=== PATIENT | male | born 1965 | race Caucasian/White ===

== ENCOUNTER 2018-08-21 05:00 | Emergency (ER) | payer BC ==
[~2018-08-21] VITALS: Ht 188 cm; Wt 94.5 kg
--- NOTE | 2018-08-21 05:14 | ED.ADGEN ---
Adult General Chief Complaint Chief Complaint "..I got up to get ready for work...and got this severe neck pain.. did have some stiffness yesterday.. in my neck.. it mainly Lt sided.. but my pain got so severe this morning ... when I was getting ready for work.. I passed out..." (ABHILASH FIERRO MD) [facility] HPI Patient is a 52 year old male who presents with above hx Lt. posterior neck pain and syncope. Pt. localizes pain to Lt side of neck from base of skull to Lt Trapezius. Pt. rates pain 6/10, sharp shooting. Ibuprofen and heating pad las t night with relief of pain. No history of fevers or chills. No history of trauma. No history of previous neck injury. No history immunosuppression. No history of problems with defecation or urination. No history of cancers. No history of IV drug use. Patient does have a history of hypertension and low testosterone. Pt. quit smoking 5 yrs ago. (ABHIALSH FIERRO MD) Review of Systems Review of Systems Constitutional: Denies fever or chills [] Eyes: Denies change in visual acuity, redness, or eye pain [] HENT: Denies nasal congestion or sore throat []complaints of neck pain Respiratory: Denies cough or shortness of breath [] Cardiovascular: No additional information not addressed in HPI [] GI: Denies abdominal pain, nausea, vomiting, bloody stools or diarrhea [] : Denies dysuria or hematuria [] Musculoskeletal: Denies back pain or joint pain [] Integument: Denies rash or skin lesions [] Neurologic: Denies headache, focal weakness or sensory changes []complains of syncope Endocrine: Denies polyuria or polydipsia [] All other systems were reviewed and found to be within normal limits, except as documented in this note. (ABHILASH FIERRO MD) Family History Family History Noncontributory (ABHILASH FIERRO MD) Current Medications Current Medications Current Medications Medications (Trade) Dose Ordered Sig/Penny Start Time Stop Time Status Last Admin Dose Admin Lactated Ringer's 1,000 ml @ 1,000 mls/hr Q1H 08/21/18 05:20 08/21/18 06:19 DC 08/21/18 06:01 1,000 MLS/HR Methylprednisolone Acetate (DEPO-Medrol IM) 40 mg 1X ONCE 08/21/18 06:00 08/21/18 06:05 DC 08/21/18 06:01 40 MG Morphine Sulfate (Morphine 10mg Syringe) 10 mg 1X ONCE 08/21/18 05:30 08/21/18 06:05 DC 08/21/18 06:02 10 MG Orphenadrine Citrate (Norflex) 60 mg 1X ONCE 08/21/18 05:30 08/21/18 06:05 DC 08/21/18 05:30 60 MG ([facility]) Allergies Allergies Allergies Coded Allergies Type Severity Reaction Last Updated Verified No Known Drug Allergies 08/21/18 No ([facility]) Physical Exam Physical Exam Constitutional: Moderately acute distress, non-toxic appearance. [] HENT: Normocephalic, atraumatic, bilateral external ears normal, oropharynx moist, no oral exudates, nose normal. [] Eyes: PERRLA, EOMI, conjunctiva normal, no discharge. [] Neck: Limited range of motion, pain at base of skull and into left trapezius, tenderness with any movement, palpation on Lt trapezius,, no stridor. [] Cardiovascular:Heart rate regular rhythm, no murmur [] Lungs & Thorax: Bilateral breath sounds with apex auscultation [] Abdomen: Bowel sounds normal, soft, no tenderness, no masses, no pulsatile masses. [] Skin: Warm, dry, no erythema, no rash. [] Back: No tenderness, no CVA tenderness. [] Extremities: No tenderness, no cyanosis, no clubbing, ROM intact, no edema. [] Neurologic: Alert and oriented X 3, normal motor function, normal sensory function, no focal deficits noted. []DTRs +2 patella and brachial. Media Production Manager equal. Psychologic: Affect anxious, judgement normal, mood normal. [] (ABHILASH FIERRO MD) Current Patient Data Vital Signs Vital Signs Date Time Temp Pulse Resp B/P (MAP) Pulse Ox O2 Delivery O2 Flow Rate FiO2 08/21/18 05:05 98.4 62 18 99 Room Air ([facility]) Lab Results Laboratory Tests Test 08/21/18 05:25 White Blood Count 11.7 x10^3/uL (4.0-11.0) H Red Blood Count 5.10 x10^6/uL (4.30-5.70) Hemoglobin 15.1 g/dL (13.0-17.5) Hematocrit 44.5 % (39.0-53.0) Mean Corpuscular Volume 87 fL (79-100) Mean Corpuscular Hemoglobin 30 pg (25-35) Mean Corpuscular Hemoglobin Concent 34 g/dL (31-37) Red Cell Distribution Width 12.8 % (11.5-14.5) Platelet Count 241 x10^3/uL (140-400) Neutrophils (%) (Auto) 81 % (31-73) H Lymphocytes (%) (Auto) 11 % (24-48) L Monocytes (%) (Auto) 6 % (0-9) Eosinophils (%) (Auto) 2 % (0-3) Basophils (%) (Auto) 0 % (0-3) Neutrophils # (Auto) 9.4 x10^3uL (1.8-7.7) H Lymphocytes # (Auto) 1.3 x10^3/uL (1.0-4.8) Monocytes # (Auto) 0.7 x10^3/uL (0.0-1.1) Eosinophils # (Auto) 0.3 x10^3/uL (0.0-0.7) Basophils # (Auto) 0.0 x10^3/uL (0.0-0.2) Erythrocyte Sedimentation Rate Pending Prothrombin Time 9.8 SEC (9.4-11.4) Prothrombin Time INR 1.0 (0.9-1.1) PTT 23 SEC (23-33) D-Dimer (Eva) 0.52 mg/L (0.00-0.50) H Sodium Level 141 mmol/L (136-145) Potassium Level 4.3 mmol/L (3.5-5.1) Chloride Level 104 mmol/L (98-107) Carbon Dioxide Level 28 mmol/L (21-32) Anion Gap 9 (6-14) Blood Urea Nitrogen 16 mg/dL (8-26) Creatinine 1.3 mg/dL (0.7-1.3) Estimated GFR (Cockcroft-Gault) 58.4 Glucose Level 121 mg/dL (70-99) H Calcium Level 9.0 mg/dL (8.5-10.1) Magnesium Level 2.0 mg/dL (1.8-2.4) Total Bilirubin 0.5 mg/dL (0.2-1.0) Direct Bilirubin 0.1 mg/dL (0.0-0.2) Aspartate Amino Transferase (AST) 24 U/L (15-37) Alanine Aminotransferase (ALT) 46 U/L (16-63) Alkaline Phosphatase 60 U/L (46-116) Creatine Kinase 181 U/L (39-308) Troponin I Quantitative < 0.017 ng/mL (0-0.055) LX-Sod-R-Type Natriuretic Peptide 6 pg/mL (0-124) Total Protein 7.2 g/dL (6.4-8.2) Albumin 3.8 g/dL (3.4-5.0) Lipase 205 U/L (73-393) ([facility] DO) Lab Results Laboratory Tests Test 08/21/18 05:25 White Blood Count 11.7 x10^3/uL (4.0-11.0) H Red Blood Count 5.10 x10^6/uL (4.30-5.70) Hemoglobin 15.1 g/dL (13.0-17.5) Hematocrit 44.5 % (39.0-53.0) Mean Corpuscular Volume 87 fL (79-100) Mean Corpuscular Hemoglobin 30 pg (25-35) Mean Corpuscular Hemoglobin Concent 34 g/dL (31-37) Red Cell Distribution Width 12.8 % (11.5-14.5) Platelet Count 241 x10^3/uL (140-400) Neutrophils (%) (Auto) 81 % (31-73) H Lymphocytes (%) (Auto) 11 % (24-48) L Monocytes (%) (Auto) 6 % (0-9) Eosinophils (%) (Auto) 2 % (0-3) Basophils (%) (Auto) 0 % (0-3) Neutrophils # (Auto) 9.4 x10^3uL (1.8-7.7) H Lymphocytes # (Auto) 1.3 x10^3/uL (1.0-4.8) Monocytes # (Auto) 0.7 x10^3/uL (0.0-1.1) Eosinophils # (Auto) 0.3 x10^3/uL (0.0-0.7) Basophils # (Auto) 0.0 x10^3/uL (0.0-0.2) Erythrocyte Sedimentation Rate 6 (0-15) Prothrombin Time 9.8 SEC (9.4-11.4) Prothrombin Time INR 1.0 (0.9-1.1) PTT 23 SEC (23-33) D-Dimer (Eva) 0.52 mg/L (0.00-0.50) H Sodium Level 141 mmol/L (136-145) Potassium Level 4.3 mmol/L (3.5-5.1) Chloride Level 104 mmol/L (98-107) Carbon Dioxide Level 28 mmol/L (21-32) Anion Gap 9 (6-14) Blood Urea Nitrogen 16 mg/dL (8-26) Creatinine 1.3 mg/dL (0.7-1.3) Estimated GFR (Cockcroft-Gault) 58.4 Glucose Level 121 mg/dL (70-99) H Calcium Level 9.0 mg/dL (8.5-10.1) Magnesium Level 2.0 mg/dL (1.8-2.4) Total Bilirubin 0.5 mg/dL (0.2-1.0) Direct Bilirubin 0.1 mg/dL (0.0-0.2) Aspartate Amino Transferase (AST) 24 U/L (15-37) Alanine Aminotransferase (ALT) 46 U/L (16-63) Alkaline Phosphatase 60 U/L (46-116) Creatine Kinase 181 U/L (39-308) Troponin I Quantitative < 0.017 ng/mL (0-0.055) GO-Hrn-Y-Type Natriuretic Peptide 6 pg/mL (0-124) Total Protein 7.2 g/dL (6.4-8.2) Albumin 3.8 g/dL (3.4-5.0) Lipase 205 U/L (73-393) Thyroid Stimulating Hormone (TSH) 2.891 uIU/mL (0.358-3.740) (ABHILASH FIERRO MD) EKG EKG My interpretation EKG shows a sinus rhythm at 64 bpm, some nonspecific contour changes anterior septal region have no findings of acute STEMI of contralateral changes.[] (ABHILASH FIERRO MD) Radiology/Procedures Radiology/Procedures [] (ABHILASH FIERRO MD) Radiology/Procedures PROCEDURE: CT HEAD AND CERVICAL SPINE WO INDICATION: Acute head and cervical pain- syncope - Lt sided COMPARISON: None. TECHNIQUE: Axial CT images obtained through the head and cervical spine. One or more of the following individualized dose reduction techniques were utilized for this examination: 1. Automated exposure control; 2. Adjustment of the mA and/or kV according to patient size; 3. Use of iterative reconstruction technique. FINDINGS: Head: No midline shift. No hydrocephalus. No definite acute intracranial hemorrhage. Suprasellar cistern is not effaced. Cervical spine: Degenerative changes throughout the cervical spine with osteophyte formation at the vertebral body endplates as well as uncovertebral and facet hypertrophy. Multilevel central canal and neural foraminal stenosis without a definite acute fracture or dislocation. IMPRESSION: 1. No acute intracranial hemorrhage. 2. Degenerative changes of the cervical spine without a definite acute fracture or dislocation. 3. Tiny focus of air or prominent fat within the central canal posteriorly at the T2-3 level. CXR does not show any acute features (ALKA HAWK DO) Course & Med Decision Making Course & Med Decision Making Pertinent Labs and Imaging studies reviewed. (See chart for details) will make disposition of pt. [] (ABHILASH FIERRO MD) Course & Med Decision Making Dr. Hawk's note: Received patient at 6 AM. Agree with previous H&P. Patient had good pain relief with the interventions provided by my predecessor. There is no evidence of meningitis, encephalitis, nor other significant etiology for the discomfort. Believe the syncopal episode to be pain mediated. We will attempt outpatient treatment. (ALKA HAWK DO) Final Impression Final Impression 1, Lt. sided posterior neck pain[] (ABHILASH FIERRO MD) Final Impression Neck pain (ALKA HAWK DO) Dragon Disclaimer Dragon Disclaimer This electronic medical record was generated, in whole or in part, using a voice recognition dictation system. (ABHILASH FIERRO MD) ABHILASH FIERRO MD Aug 21, 2018 05:14 ALKA HAWK DO Aug 21, 2018 06:41
[2018-08-21] MEDS ORDERED: IV RINGERS SOLUTION,LACTATED 1,000 ML IV SCH (05:20)
[2018-08-21] MEDS ORDERED: MORPHINE SULFATE 10 MG/ML SYRINGE. SQ ONE (05:30)
[2018-08-21] MEDS ORDERED: ORPHENADRINE CITRATE 60 MG/2 ML VIAL. IV ONE (05:30)
[2018-08-21] MEDS ORDERED: AMLO5TAB10 PO (05:37)
[2018-08-21] MEDS ORDERED: TEST5GEL TD (05:37)
[2018-08-21 05:41] LABS: BASO % 0 % (0-3); EOS # 0.3 x10^3/uL (0.0-0.7); EOS % 2 % (0-3); HEMATOCRIT 44.5 % (39.0-53.0); HEMOGLOBIN 15.1 g/dL (13.0-17.5); LYMPH # 1.3 x10^3/uL (1.0-4.8); LYMPH % 11 % (24-48); MEAN CORPUSCULAR HEMOGLOBIN 30 pg (25-35); MEAN CORPUSCULAR HGB CONC 34 g/dL (31-37); MEAN CORPUSCULAR VOLUME 87 fL (79-100); MONO # 0.7 x10^3/uL (0.0-1.1); MONO % 6 % (0-9); NEUT # 9.4 x10^3uL (1.8-7.7); NEUT % 81 % (31-73); PLATELET COUNT 241 x10^3/uL (140-400); RED CELL DISTRIBUTION WIDTH 12.8 % (11.5-14.5); WHITE BLOOD COUNT 11.7 x10^3/uL (4.0-11.0)
[2018-08-21] MEDS ORDERED: methylPREDNISolone ACETATE 40 MG/ML VIAL. IM ONE (06:00)
[2018-08-21 06:01] LABS: ALBUMIN 3.8 g/dL (3.4-5.0); CREATININE 1.3 mg/dL (0.7-1.3); DIRECT BILIRUBIN 0.1 mg/dL (0.0-0.2); GFR 58.4; POTASSIUM 4.3 mmol/L (3.5-5.1); TOTAL BILIRUBIN 0.5 mg/dL (0.2-1.0); TOTAL PROTEIN 7.2 g/dL (6.4-8.2)
--- NOTE | 2018-08-21 06:26 | RAD ---
INDICATION: Acute head and cervical pain- syncope - Lt sided COMPARISON: None. TECHNIQUE: Axial CT images obtained through the head and cervical spine. One or more of the following individualized dose reduction techniques were utilized for this examination: 1. Automated exposure control; 2. Adjustment of the mA and/or kV according to patient size; 3. Use of iterative reconstruction technique. FINDINGS: Head: No midline shift. No hydrocephalus. No definite acute intracranial hemorrhage. Suprasellar cistern is not effaced. Cervical spine: Degenerative changes throughout the cervical spine with osteophyte formation at the vertebral body endplates as well as uncovertebral and facet hypertrophy. Multilevel central canal and neural foraminal stenosis without a definite acute fracture or dislocation. IMPRESSION: 1. No acute intracranial hemorrhage. 2. Degenerative changes of the cervical spine without a definite acute fracture or dislocation. 3. Tiny focus of air or prominent fat within the central canal posteriorly at the T2-3 level. Electronically signed by: Martir Lau MD (08/21/2018 6:23 AM) [id number]
[2018-08-21 06:40] LABS: SEDIMENTATION RATE 6 (0-15)
[2018-08-21] MEDS ORDERED: MELO7.5T29 PO (06:44)
[2018-08-21] MEDS ORDERED: ORPH-16 PO (06:44)
--- NOTE | 2018-08-21 06:50 | EKG ---
[address] [address] Test Date: 2018-08-21 Test Time: 05:08:29 Pat Name: ANIBAL JOHNSON Department: Room: Gender: M Superintendent Track: SY : 1965 Requested By: ABHILASH FIERRO Order Number: [id number] Reading MD: Jose Portillo Measurements Intervals [place] Rate: 64 P: 15 ID: [id number] QRS: 26 QRSD: 90 T: 11 QT: 394 QTc: 410 Interpretive Statements SINUS RHYTHM NONSPECIFIC ST-T WAVE CHANGES. Electronically Signed On 08-28-2018 11:34:54 CDT by Jose Portillo
[2018-08-21] MEDS ORDERED: HYDROcodon/IBUPROFEN 7.5/200MG 1 TAB TABLET PO ONE (07:15)
[2018-08-21 07:42] VITALS: BP 136/96
--- NOTE | 2018-08-21 08:51 | RAD ---
CHEST AP ONLY Clinical indications: Left sided chest and neck pain COMPARISON: None available. Findings: No acute lung infiltrate or pleural effusion or pulmonary edema or lung mass or pneumothorax is seen. The heart size, pulmonary vasculature, mediastinum and both andrew are unremarkable. Impression: No acute radiographic abnormality is seen. Electronically signed by: Raffaele Keating MD (08/21/2018 8:47 AM) [id number]
== END 2018-08-21 08:13 | disposition home or self-care (01) ==
LOC: ER 05:00
DX: M54.2 Cervicalgia (principal); R55 Syncope and collapse; Z87.891 Personal history of nicotine dependence
CPT/HCPCS: 36415; 70450; 71045; 72125; 80048; 80076; 82550; 83690; 83735; 83880; 84443; 84484; 85025; 85379; 85610; 85651; 85730; 93005; 96361; 96372; 96374; 99285; J1030; J2270; J2360; J7120